=== PATIENT | male | born 1960 ===

== ENCOUNTER 2016-09-11 06:21 | Day surgery (SDC) | payer BC ==
[2016-09-08 12:55] VITALS: BMI 30.7
[2016-09-11] MEDS ORDERED: Bupivacaine 0.5% Inj(30mL) ONE (07:29)
[2016-09-11] MEDS ORDERED: Lidocaine 1% Inj (20ml) ONE (07:29)
[2016-09-11] MEDS ORDERED: Rocuronium 10 mg/ml (5 ml) ONE (07:45)
[2016-09-11] MEDS ORDERED: Propofol 10 mg/ml Inj (20 ML) ONE (07:45)
[2016-09-11] MEDS ORDERED: Succinylcholine 200 mg/10 ml Inj IV ONE (07:45)
[2016-09-11] MEDS ORDERED: Midazolam 2 MG/2 ML VIAL ONE (07:45)
[2016-09-11] MEDS ORDERED: Ciprofloxacin 400mg/200ml D5W 400 MG/200 ML BAG IVPB ONE (07:59)
[2016-09-11] MEDS ORDERED: ePHEDrine 50 mg/ml Inj ONE (08:10)
[2016-09-11] MEDS ORDERED: Neostigmine Methylsulfate 3mg/3ml Syringe IV ONE (09:29)
[2016-09-11] MEDS ORDERED: Oxycodone/Acetaminophen 5/325 mg Tab PO PRN (09:41)
--- NOTE | 2016-09-11 09:41 | PCM.SURG1 ---
<Rafita Curtis - Last Filed: 09/11/16 09:40> Surgeon's Initial Post Op Note - Surgeon's Notes Surgeon: Dr Duarte Hall Worker: Dr Curtis PGY2 Type of Anesthesia: General Endo Pre-Operative Diagnosis: renal failure Operative Findings: see report Post-Operative Diagnosis: as above Operation Performed: radio-cephalic fistula Specimen/Specimens Removed: none Estimated Blood Loss: EBL {In ML}: 5 Blood Products Given: N/A Drains Used: No Drains Post-Op Condition: Good Date of Surgery/Procedure: 09/11/16 Time of Surgery/Procedure: 09:40 <Benny Duarte - Last Filed: 09/24/16 18:22> Surgeon's Initial Post Op Note - Surgeon's Notes Operation Performed: Venous doppler left arm for mapping. Left forearm AV fistula creation
[2016-09-11] MEDS ORDERED: Sodium Chloride 0.9% 1,000 ML IV SCH (09:45)
[2016-09-11] MEDS ORDERED: HYDROmorphone 0.5 mg/0.5 ml ISec IVP PRN (09:45)
[2016-09-11 10:49] VITALS: TEMP 97.6
--- NOTE | 2016-09-11 11:31 | OP ---
PROCEDURE DATE: 09/11/2016 PREOPERATIVE DIAGNOSIS: Renal insufficiency. POSTOPERATIVE DIAGNOSIS: Renal insufficiency. PROCEDURES PERFORMED: 1. Venous mapping of the left upper arm. 2. Creation of the arteriovenous fistula between the cephalic vein and radial artery at the wrist le kunal. SURGEON: Dr. Duarte PHYSICAL THERAPY NURSE: Dr. Bauer. ANESTHESIOLOGIST: Dr. Caputo. ANESTHESIA: General endotracheal anesthesia. ESTIMATED BLOOD LOSS: Minimal. SPECIMEN: None. INDICATION: The patient is a 56-year-old male with a history of hypertensive renal insufficiency whi ch is getting worse, and patient is currently getting close to the need for the hemodialysis. The pa carmencita was scheduled for the creation of AV fistula in order to prepare for the time when he will need dialysis. DESCRIPTION OF PROCEDURE: The patient was brought to the operating room and placed on the operating table in supine position. The patient was connected to EKG, blood pressure and pulse oximeter monito rs. The patient then underwent general endotracheal anesthesia and was prepped and draped in usual s terile fashion. First, a standard timeout procedure was performed where everybody in the room agreed as to the patien t's identity, diagnosis and procedure to be performed. Using `1% lidocaine mixed with Marcaine, the area of incision of the wrist was infiltrated. Prior to that, the ultrasound was used in order to kailash the course of the cephalic vein as well as the side b ranches of it in preparation for the anastomosis. Once this was done, we then proceeded with making an incision using #15 blade at the wrist, carefully dissected through subcutaneous fat and mobilized some skin flaps in order to expose the cephalic vein and radial artery. Once both of the vessels wer e carefully dissected out and the little side branches were ligated, I then proceeded with heparinizi ng patient with 4000 units of heparin, flushed the vein with heparinized saline, and proceeded with c lamping the radial artery. The artery was elevated on vessel loops. Once this was done, a longitudi nal arteriotomy was made using #11 blade and Tobar scissors. Once this was created for about 1.5 cm of length, we then proceeded with an end-to-side anastomosis using 6-0 Prolene of the cephalic vein t o the radial artery. Once the anastomosis was completed and vented, the forward flow was established . There was a faint bruit noted at the beginning portion of the conduit and a good Doppler sound was noted throughout the remaining portion of the conduit. Once this was done, the wound was irrigated and closed in layers using 3-0 Vicryl for deep dermal layer and 4-0 Monocryl for skin. A sterile Daryl mabond dressing was applied to the wound. The patient tolerated the procedure well and there were no complications. The patient was awakened and transferred to recovery room for further observation. Benny Duarte MD cc: [id number] TT: 09/11/2016 11:30:31 mn
[2016-09-11 12:36] VITALS: BP 154/96; PULSE 45; RESP 18; O2SAT 97
== END 2016-09-11 11:45 | disposition home or self-care (01) ==
LOC: SDS 06:21
PROVIDERS: ATTEND General Practice
DX: I12.9 Hypertensive chronic kidney disease with stage 1 through stage 4 chronic kidney disease, or unspecified chronic kidney disease (principal); E11.22 Type 2 diabetes mellitus with diabetic chronic kidney disease; N18.9 Chronic kidney disease, unspecified; I25.10 Atherosclerotic heart disease of native coronary artery without angina pectoris; D64.9 Anemia, unspecified; E78.5 Hyperlipidemia, unspecified; E21.3 Hyperparathyroidism, unspecified

== ENCOUNTER 2017-03-24 07:20 | Day surgery (SDC) | payer BC ==
[2017-03-20 14:13] VITALS: BMI 32.1
[2017-03-24 07:58] LABS: BASO # 0.03 K/mm3 (0.0-2.0); BASO % 0.6 % (0.0-3.0); EOS # 0.2 (0.0-0.7); EOS % 2.8 % (1.5-5.0); GRAN # 3.55 (1.4-6.5); GRAN % 66.7 % (50.0-68.0); HEMATOCRIT 37.3 % (42.0-52.0); LYMPH # 1.2 (1.2-3.4); MEAN CELL VOLUME 85.9 fl (80.0-105.0); MEAN CORPUSCULAR HEMOGLOBIN 27.6 pg (25.0-35.0); MEAN CORPUSCULAR HGB CONC 32.2 g/dl (31.0-37.0); MEAN PLATELET VOLUME 11.5 fl (7.0-11.0); MONO # 0.4 (0.1-0.6); MONO % 7.9 % (1.0-6.0); RED CELL DISTRIBUTION WIDTH 14.6 % (11.5-14.5); WHITE BLOOD COUNT 5.3 10^3/ul (4.5-11.0)
[2017-03-24 08:11] LABS: INR 1.07 (0.93-1.08); PARTIAL THROMBOPLASTIN TIME 27.9 Seconds (25.1-36.5)
[2017-03-24 08:15] LABS: CALCIUM 9.5 mg/dL (8.4-10.5); POTASSIUM 4.6 mmol/L (3.6-5.0)
[2017-03-24] MEDS ORDERED: Lidocaine 2% Inj (20ml) ONE (08:17)
[2017-03-24] MEDS ORDERED: Nitroglycerin 50mg in D5W 0 MG/0 ML BOTTLE IV ONE (08:18)
[2017-03-24] MEDS ORDERED: Iodixanol 320 mg/ml 150 ml Bottle IV ONE (08:18)
[2017-03-24] MEDS ORDERED: Midazolam 2 MG/2 ML VIAL ONE (09:47)
[2017-03-24 10:45] VITALS: O2SAT 99
[2017-03-24 11:25] VITALS: RESP 18
[2017-03-24 12:37] VITALS: BP 182/94; PULSE 83; TEMP 97.8
--- NOTE | 2017-03-24 17:18 | VASCULAR ---
PROCEDURE: 1. Left upper extremity AV fistula angiogram HISTORY: End-stage renal disease. Malfunctioning AV access PHYSICIAN(S): Paul Moseley MD. TECHNIQUE: The relative risks and indications of the procedure were explained to the patient and consent obtained. The patient was placed supine on the angiography table and the left arm prepped and draped in usual sterile fashion. Conscious sedation and monitoring provided throughout the procedure by a nurse. The left arm AV fistula was punctured near the wrist in an antegrade direction under ultrasound guidance with a micropuncture set. A 5 Welsh catheter was placed. An overlapping left upper extremity AV fistula angiogram was performed. Central venous imaging was obtained. Pressure was applied near the access site and reflux of the arterial anastomosis performed. The catheter was removed and hemostasis obtained. FINDINGS: The patient's left upper extremity B-C fistula is patent. Arterial anastomosis was not well seen on the reflux images but appears widely patent on the preliminary ultrasound evaluation. The left cephalic vein in the forearm is patent though somewhat small. At the median antecubital fossa, collaterals lead to the left basilic system. The left cephalic vein above the elbow is occluded. The left axillary vein, left subclavian vein, left innominate vein, and SVC are widely patent. At completion of the procedure, the left cephalic vein in the forearm was marked with ultrasound guidance. IMPRESSION: 1. Patent left upper extremity radial-cephalic fistula. The fistula was marked in the forearm.
== END 2017-03-24 12:00 | disposition home or self-care (01) ==
LOC: SDSVAS 07:20
PROVIDERS: ATTEND Radiology Vascular & Interventional Radiology
DX: T82.319A Breakdown (mechanical) of unspecified vascular grafts, initial encounter (principal); I12.0 Hypertensive chronic kidney disease with stage 5 chronic kidney disease or end stage renal disease; E11.22 Type 2 diabetes mellitus with diabetic chronic kidney disease; N18.6 End stage renal disease; Z88.0 Allergy status to penicillin
CPT/HCPCS: 36415; 36901; 80048; 82948; 85025; 85610; 85730; 99152; C1769; J0360; J1644; J2250; J2405; J3010

== ENCOUNTER 2017-07-07 06:45 | Day surgery (SDC) | payer BC ==
[2017-06-30 09:35] VITALS: BMI 30.7
[2017-07-07] MEDS ORDERED: Propofol 10 mg/ml Inj (20 ML) ONE (08:56)
[2017-07-07] MEDS ORDERED: Midazolam 2 MG/2 ML VIAL ONE (08:56)
[2017-07-07] MEDS ORDERED: Sodium Chloride 0.9% 1,000 ML IV SCH (10:00)
[2017-07-07 10:15] VITALS: RESP 14
[2017-07-07 10:17] VITALS: PULSE 72
[2017-07-07 12:01] VITALS: BP 161/75; TEMP 98.3; O2SAT 96
== END 2017-07-07 11:40 | disposition home or self-care (01) ==
LOC: ENDO 06:45
PROVIDERS: ATTEND Internal Medicine Gastroenterology
DX: Z12.11 Encounter for screening for malignant neoplasm of colon (principal); D12.3 Benign neoplasm of transverse colon; K21.0 Gastro-esophageal reflux disease with esophagitis; K29.70 Gastritis, unspecified, without bleeding; K31.9 Disease of stomach and duodenum, unspecified; K64.8 Other hemorrhoids; K64.4 Residual hemorrhoidal skin tags; I12.0 Hypertensive chronic kidney disease with stage 5 chronic kidney disease or end stage renal disease; N18.6 End stage renal disease; E11.22 Type 2 diabetes mellitus with diabetic chronic kidney disease; Z99.2 Dependence on renal dialysis; Z79.4 Long term (current) use of insulin; Z76.82 Awaiting organ transplant status
CPT/HCPCS: 43239; 45380; 82948; 88305; 88342; J2001; J2250; J2704; J7040 ×2

== ENCOUNTER 2017-07-22 01:52 | Emergency (ER) | payer BC ==
[2017-07-22 01:52] VITALS: BMI 30.7
[2017-07-22 02:06] VITALS: BP 203/93; PULSE 88; RESP 18; TEMP 98.4; O2SAT 98
[2017-07-22] MEDS ORDERED: Lidocaine 1%/Epinephrine 1:100000 30 ml vial IJ STA (02:15)
[2017-07-22] MEDS ORDERED: TDAP Vaccine 0.5 mL Syr IM ONE (02:17)
--- NOTE | 2017-07-22 02:17 | ED PDOC ---
Arrival/HPI - General Chief Complaint: Abnormal Skin Integrity Time Seen by Provider: 07/22/17 01:54 Historian: Patient - History of Present Illness Narrative History of Present Illness (Text): 07/22/17 02:15 Kelvin Woodward is a 57 year old male, whose past medical history includes ESRD, who presents to the Emergency department complaining of a left armpit laceration status post mechanical fall prior to arrival. Patient states he lost his balance and fell after getting out bed tonight. Patient states he hit his left arm pit against his nightstand and sustained a laceration to the area. Patient states he feels fine otherwise, only presented due to the laceration. Patient denies any head trauma, loss of consciousness, chest pain, shortness of breath, nausea, vomiting, neck pain, headache, dizziness, or any other complaints. Patient states his tetanus is not up to date. Time/Duration: Prior to Arrival Symptom Onset: Sudden Symptom Course: Unchanged Activities at Onset: Light Context: Standing, Home Past Medical History - Provider Review Nursing Documentation Reviewed: Yes - Cardiac Hx Cardiac Disorders: No - Pulmonary Hx Respiratory Disorders: No - Neurological Hx Neurological Disorder: No - HEENT Hx HEENT Disorder: No - Renal Hx Renal Disorder: Yes Hx Dialysis: Yes (MWF) Hx Renal Failure: Yes - Endocrine/Metabolic Hx Endocrine Disorders: Yes Hx Diabetes Mellitus Type 2: Yes - Hematological/Oncological Hx Blood Disorders: No - Integumentary Hx Dermatological Disorder: No - Musculoskeletal/Rheumatological Hx Musculoskeletal Disorders: No - Gastrointestinal Hx Gastrointestinal Disorders: No - Genitourinary/Gynecological Hx Genitourinary Disorders: No - Psychiatric Hx Psychophysiologic Disorder: No Hx Substance Use: No - Surgical History Hx Arteriovenous Shunt: Yes (L arm) - Anesthesia Hx Anesthesia Reactions: No Hx Malignant Hyperthermia: No - Suicidal Assessment Feels Threatened In Home Enviroment: No Family/Social History - Physician Review Nursing Documentation Reviewed: Yes Family/Social History: Unknown Family HX Smoking Status: Never Smoked Hx Alcohol Use: No Hx Substance Use: No Allergies/Home Meds Allergies/Adverse Reactions: Allergies Penicillins Allergy (Severe, Verified 07/22/17 02:17) RASH Home Medications: Home Meds Medication Instructions Recorded Confirmed Calcium Acetate [Phoslo] 667 mg PO WM 08/28/16 07/22/17 Cholecalciferol (Vitamin D3) 50,000 unit PO SUN 08/28/16 07/22/17 [Vitamin D3] Colesevelam HCl [Welchol] 625 mg PO TID 08/28/16 07/22/17 Insulin Lispro [Humalog (Insulin 100 unit IPCAR CONT PRN MDD USES 08/28/1607/22 Lispro)] INSULIN PUMPOFF PRESENTLY Folic Acid/Vit B Complex and C 0.8 mg PO DAILY 03/23/17 07/22/17 [Madison-Bora Tablet] Losartan [Cozaar] 100 mg PO DAILY 03/23/17 07/22/17 Rosuvastatin Calcium [Crestor] 10 mg PO DAILY 03/23/17 07/22/17 Omeprazole 20 mg PO DAILY 07/07/17 07/22/17 Review of Systems - Physician Review All systems were reviewed & negative as marked: Yes - Review of Systems Constitutional: Normal. absent: Fevers Eyes: Normal ENT: Normal Respiratory: Normal. absent: SOB, Cough Cardiovascular: Normal. absent: Chest Pain Gastrointestinal: Normal. absent: Abdominal Pain, Diarrhea, Nausea, Vomiting Genitourinary Male: Normal. absent: Dysuria, Frequency, Hematuria, Urinary Output Changes Musculoskeletal: Normal. absent: Back Pain, Neck Pain Skin: Laceration. absent: Rash Neurological: Normal. absent: Headache, Dizziness Endocrine: Normal Hemo/Lymphatic: Normal Psychiatric: Normal Physical Exam Vital Signs Reviewed: Yes Vital Signs Temp Pulse Resp BP Pulse Ox 07/22/17 02:03 98.4 F 88 18 203/93 H 98 Temperature: Afebrile Blood Pressure: Normal Pulse: Regular Respiratory Rate: Normal Appearance: Positive for: Well-Appearing, Non-Toxic, Comfortable Pain Distress: None Mental Status: Positive for: Alert and Oriented X 3 - Systems Exam Head: Present: Atraumatic, Normocephalic Pupils: Present: PERRL Extroacular Muscles: Present: EOMI Conjunctiva: Present: Normal Mouth: Present: Moist Mucous Membranes Neck: Present: Normal Range of Motion. No: Meningeal Signs, MIDLINE TENDERNESS , Paraspinal Tenderness Respiratory/Chest: Present: Clear to Auscultation, Good Air Exchange. No: Respiratory Distress, Accessory Muscle Use Cardiovascular: Present: Regular Rate and Rhythm, Normal S1, S2. No: Murmurs Abdomen: No: Tenderness, Distention, Peritoneal Signs Back: Present: Normal Inspection Upper Extremity: Present: Normal ROM, NORMAL PULSES, Capillary Refill < 2s, Other (2 cm laceration to left axilla). No: Cyanosis, Edema, Tenderness, Swelling, Erythema Lower Extremity: Present: Normal Inspection. No: Edema Neurological: Present: GCS=15, CN II-XII Intact, Speech Normal, Motor Func Grossly Intact, Normal Sensory Function, Normal Cerebellar Funct, Gait Normal, Memory Normal Skin: Present: Warm, Dry, Normal Color. No: Rashes Psychiatric: Present: Alert, Oriented x 3, Normal Insight, Normal Concentration Medical Decision Making ED Course and Treatment: 07/22/17 02:15 Impression: 57 year old male complaining of a left armpit laceration s/p mechanical fall prior to arrival. Differential Diagnosis included but are not limited to: laceration Plan: -- Laceration repair -- TDAP -- Reassess and disposition Progress Notes: PROCEDURE: LACERATION REPAIR Performed by the emergency provider Location: Left axilla Length: 2 cm Description: clean wound edges, no foreign bodies Distal CMS: Normal. No deficits. Neurovascularly intact. Anesthesia: Lidocaine 1% with Epi Preparation: The wound was cleaned with NS and Betadyne. The area was prepped and draped in the usual sterile fashion. Exploration: The wound was explored and no foreign bodies were found. Procedure: The wound was closed with 3-0 nylon. There was good approximation. In total, 6 surgical sutures were used. Post-Procedure: Good closure and hemostasis. The patient tolerated the procedure well and there were no complications. CSM remains intact. Post procedure dressing applied. 07/22/17 02:44 Pt states he feels well, denies any syncope/head trauma/headache/dizziness. Pt well-appearing, in no acute distress. Pt stable for d/c. 07/22/17 02:55 - Medication Orders Current Medication Orders: Discontinued Medications Lidocaine/Epinephrine (Lidocaine 1%/Epinephrine 1:[id number] 30 Ml) 10 ml IJ STAT STA Stop: 07/22/17 02:16 Last Admin: 07/22/17 02:26 Dose: 10 ml Comments: administered by Tetanus/Reduced Diphtheria/Acell Pertussis (Boostrix Vaccine Inj) 0.5 ml IM .ONCE ONE Stop: 07/22/17 02:18 Last Admin: 07/22/17 02:24 Dose: 0.5 ml Immunization Registry Document 07/22/17 02:24 CNR (Rec: 07/22/17 02:24 CNR [id number]) Immunization Registry Consent Date 03/20/17 - Scribe Statement The provider has reviewed the documentation as recorded by the Fay Hughes Provider Scribe Attestation: All medical record entries made by the Scribe were at my direction and personally dictated by me. I have reviewed the chart and agree that the record accurately reflects my personal performance of the history, physical exam, medical decision making, and the department course for this patient. I have also personally directed, reviewed, and agree with the discharge instructions and disposition. Disposition/Present on Arrival - Present on Arrival Any Indicators Present on Arrival: No History of DVT/PE: No History of Uncontrolled Diabetes: No Urinary Catheter: No History of Decub. Ulcer: No History Surgical Site Infection Following: None - Disposition Have Diagnosis and Disposition been Completed?: Yes Diagnosis: Laceration Disposition: HOME/ ROUTINE Disposition Time: 02:00 Condition: STABLE Discharge Instructions (ExitCare): Laceration Repair With Stitches (DC) Additional Instructions: return to you rdoctor or er in 10 days for removal. please return immediately with any worsening symptoms or concerns. Prescriptions: Naproxen 500 mg PO BID PRN #14 tab PRN Reason: Pain, Mild (1-3) Referrals: Alan Hernandez DO [Primary Care Provider] - Follow up with primary Forms: [employer] (Vietnamese)
== END 2017-07-22 02:54 | disposition home or self-care (01) ==
LOC: ED 01:52
DX: S41.112A Laceration without foreign body of left upper arm, initial encounter (principal); W01.190A Fall on same level from slipping, tripping and stumbling with subsequent striking against furniture, initial encounter; Y92.003 Bedroom of unspecified non-institutional (private) residence as the place of occurrence of the external cause; Z23 Encounter for immunization

== ENCOUNTER 2017-08-11 11:53 | Emergency (ER) | payer BC ==
[2017-08-11 11:54] VITALS: BMI 30.7
[2017-08-11 13:09] VITALS: BP 165/96; PULSE 85; RESP 18; TEMP 98.4
[2017-08-11 13:10] VITALS: O2SAT 99
--- NOTE | 2017-08-11 15:39 | ED PDOC ---
Arrival/HPI - General Chief Complaint: Suture/Staple Removal Time Seen by Provider: 08/11/17 11:58 Historian: Patient - History of Present Illness Narrative History of Present Illness (Text): 08/11/17 11:37 A 57 year old male presents to the emergency department for stitch removal. Patient has 6 stitches to left axillary. Patient denies any pain or any other complaints. PMD: Dr. Hernandez Past Medical History - Provider Review Nursing Documentation Reviewed: Yes - Cardiac Hx Cardiac Disorders: No - Pulmonary Hx Respiratory Disorders: No - Neurological Hx Neurological Disorder: No - HEENT Hx HEENT Disorder: No - Renal Hx Renal Disorder: Yes Hx Dialysis: Yes (MWF) Hx Renal Failure: Yes - Endocrine/Metabolic Hx Endocrine Disorders: Yes Hx Diabetes Mellitus Type 2: Yes - Hematological/Oncological Hx Blood Disorders: No - Integumentary Hx Dermatological Disorder: No - Musculoskeletal/Rheumatological Hx Musculoskeletal Disorders: No - Gastrointestinal Hx Gastrointestinal Disorders: No - Genitourinary/Gynecological Hx Genitourinary Disorders: No - Psychiatric Hx Psychophysiologic Disorder: No Hx Substance Use: No - Surgical History Hx Arteriovenous Shunt: Yes (L arm) - Anesthesia Hx Anesthesia Reactions: No Hx Malignant Hyperthermia: No - Suicidal Assessment Feels Threatened In Home Enviroment: No Family/Social History - Physician Review Nursing Documentation Reviewed: Yes Family/Social History: No Known Family HX Smoking Status: Never Smoked Hx Alcohol Use: No Hx Substance Use: No Allergies/Home Meds Allergies/Adverse Reactions: Allergies Penicillins Allergy (Severe, Verified 08/11/17 12:47) RASH Home Medications: Home Meds Medication Instructions Recorded Confirmed Calcium Acetate [Phoslo] 667 mg PO WM 08/28/16 08/11/17 Cholecalciferol (Vitamin D3) 50,000 unit PO SUN 08/28/16 08/11/17 [Vitamin D3] Colesevelam HCl [Welchol] 625 mg PO TID 08/28/16 08/11/17 Insulin Lispro [Humalog (Insulin 100 unit IPCAR CONT PRN MDD USES 08/28/1608/11 Lispro)] INSULIN PUMPOFF PRESENTLY Folic Acid/Vit B Complex and C 0.8 mg PO DAILY 03/23/17 08/11/17 [Madison-Bora Tablet] Losartan [Cozaar] 100 mg PO DAILY 03/23/17 08/11/17 Rosuvastatin Calcium [Crestor] 10 mg PO DAILY 03/23/17 08/11/17 Omeprazole 20 mg PO DAILY 07/07/17 08/11/17 Review of Systems - Physician Review All systems were reviewed & negative as marked: Yes - Review of Systems Constitutional: absent: Fevers, Night Sweats Respiratory: absent: SOB, Cough Cardiovascular: absent: Chest Pain Gastrointestinal: absent: Abdominal Pain, Diarrhea, Nausea, Vomiting Physical Exam Vital Signs Reviewed: Yes Vital Signs Temp Pulse Resp BP Pulse Ox 08/11/17 13:10 18 99 08/11/17 13:08 98.4 F 85 18 165/96 H 98 Temperature: Afebrile Blood Pressure: Hypertensive Pulse: Regular Respiratory Rate: Normal Appearance: Positive for: Well-Appearing Pain Distress: None - Systems Exam Upper Extremity: Present: Other (left axillary 6 stiches removed, clean and intact.) Medical Decision Making ED Course and Treatment: 08/11/17 11:39 Impression: 57 year old male arrives to ER for stitch removal. Plan: Stitches removal. -- Reassess and disposition Prior Visits: Notes and results from previous visits were reviewed. Patient was last seen in the emergency department on 07/22/17 for shoulder pain. Progress Notes: - Scribe Statement The provider has reviewed the documentation as recorded by the Fay Benson Provider Scribe Attestation: All medical record entries made by the Scribe were at my direction and personally dictated by me. I have reviewed the chart and agree that the record accurately reflects my personal performance of the history, physical exam, medical decision making, and the department course for this patient. I have also personally directed, reviewed, and agree with the discharge instructions and disposition. Disposition/Present on Arrival - Present on Arrival Any Indicators Present on Arrival: No History of DVT/PE: No History of Uncontrolled Diabetes: No Urinary Catheter: No History of Decub. Ulcer: No History Surgical Site Infection Following: None - Disposition Have Diagnosis and Disposition been Completed?: Yes Diagnosis: Visit for suture removal Disposition: HOME/ ROUTINE Disposition Time: 07:00 Condition: STABLE Discharge Instructions (ExitCare): Stitches Removal Additional Instructions: return to er with worsening symptoms or concerns. Referrals: [facility] [Outside] - Follow up with primary [facility] [place]Outside] - Follow up with primary Forms: [employer] (Sammarinese)
== END 2017-08-11 13:10 | disposition home or self-care (01) ==
LOC: ED 11:53
DX: Z48.02 Encounter for removal of sutures (principal)